=== PATIENT | female | born 1990 | race African-American/Black ===

== ENCOUNTER → 2017-05-29 | Outpatient (CLI) | payer OTHER ==
[~2017-05-29] MED LIST: EXCETAB80 PO; REGL10TA6 PO
[2017-05-29 18:07] LABS: FOLLICLE STIMULATING HORMONE 4.7 mIU/mL; LUTEINIZING HORMONE 3.8 mIU/mL
[2017-05-29 18:21] LABS: FREE T4 0.74 NG/DL (0.76-1.46)
== END ==
LOC: M LRY 13:10 → EDBD 13:10
PROVIDERS: ATTEND Physician Assistant Medical
DX: N92.6 Irregular menstruation, unspecified (principal)

== ENCOUNTER 2017-06-13 20:28 | Emergency (ER) | payer OTHER ==
[~2017-06-13] VITALS: Ht 165.1 cm; Wt 84.5 kg
[2017-06-13] MEDS ORDERED: EXCETAB80 PO (20:46)
[2017-06-13] MEDS ORDERED: METOCLOPRAMIDE INJ 10MG/2ML VIAL (J2765) IV ONE (21:15)
[2017-06-13] MEDS ORDERED: diphenhydrAMINE INJ 50MG/ML VIAL (J1200) IV STA (21:15)
[2017-06-13] MEDS ORDERED: KETOROLAC 30 MG/ML VIAL (J1885) IV ONE (21:15)
[2017-06-13] MEDS ORDERED: NS 1,000 ML IV ONE (21:15)
[2017-06-13 22:02] LABS: BASO # 0.1 10^3/uL (0.0-0.2); BASO % 0.6 % (0.0-1.0); EOS % 0.1 % (0.0-3.0); IMMATURE GRANULOCYTE % 0.3 % (0-0); LYMPH # 2.1 10^3/uL (1.5-6.5); LYMPH % 19.4 % (24.0-44.0); MEAN CORPUSCULAR HEMOGLOBIN 29.9 pg (27.0-33.0); MEAN CORPUSCULAR HGB CONC 31.6 g/dl (32.0-36.5); MEAN CORPUSCULAR VOLUME 94.6 fl (80.0-96.0); MONO # 0.8 10^3/uL (0.0-0.8); MONO % 7.7 % (0.0-5.0); NEUTROPHILS # 7.8 10^3/uL (1.8-7.7); NEUTROPHILS % 71.9 % (36.0-66.0); PLATELET COUNT, AUTOMATED 254 10^3/uL (150-450); RED CELL DISTRIBUTION WIDTH 11.6 % (11.5-14.5); WHITE BLOOD COUNT 10.8 10^3/uL (4.0-10.0)
[2017-06-13 22:37] LABS: CONTROL LINE HCG INT CTR LINE PRESENT
[2017-06-13 22:47] LABS: ALBUMIN 3.7 GM/DL (3.2-5.2); ALBUMIN/GLOBULIN RATIO 0.88 (1.00-1.93); ALKALINE PHOSPHATASE 45 U/L (45-117); ALT/SGPT 31 U/L (12-78); ANION GAP 6 MEQ/L (8-16); AST/SGOT 31 U/L (15-37); BILIRUBIN,DIRECT < 0.1 MG/DL (0.0-0.2); BILIRUBIN,TOTAL 0.3 MG/DL (0.2-1.0); BLOOD UREA NITROGEN 12 MG/DL (7-18); CALCIUM LEVEL 8.5 MG/DL (8.5-10.1); CARBON DIOXIDE LEVEL 28 MEQ/L (21-32); CHLORIDE LEVEL 105 MEQ/L (98-107); CREATININE FOR GFR 0.72 MG/DL (0.55-1.02); GLOMERULAR FILTRATION RATE > 60.0 (>60); GLUCOSE, FASTING 120 MG/DL (70-105); SODIUM LEVEL 139 MEQ/L (136-145); TOTAL PROTEIN 7.9 GM/DL (6.4-8.2)
[2017-06-13] MEDS ORDERED: LORazepam 2 MG/ML VIAL (J2060) IV STA (23:50)
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
[2017-06-13] MEDS ORDERED: REGL10TA6 PO (23:52)
[2017-06-13 23:55] VITALS: BP 129/69
== END 2017-06-14 00:09 | disposition home or self-care (01) ==
LOC: M ED 20:28
DX: G43.909 Migraine, unspecified, not intractable, without status migrainosus (principal)
CPT/HCPCS: 70450; 80048; 80076; 82550; 82553; 84443; 84703; 85025; 93005; 94760; 96374; 96375; 99284; G0463; J1200; J1885; J2060; J2765

== ENCOUNTER → 2018-02-23 | Outpatient (REF) | payer OTHER | LOC: M SFHCLERA 17:33 | DX: R10.30 Lower abdominal pain, unspecified (principal) | CPT/HCPCS: 87086 ==

== ENCOUNTER → 2018-02-24 | Outpatient (CLI) | payer OTHER ==
[2018-02-24 20:00] LABS: BASO # 0.1 10^3/uL (0.0-0.2); BASO % 0.6 % (0.0-1.0); EOS # 0.1 10^3/uL (0.0-0.50); EOS % 1.1 % (0.0-3.0); HEMATOCRIT 38.4 % (36.0-47.0); HEMOGLOBIN 12.3 g/dl (12.0-15.5); IMMATURE GRANULOCYTE % 0.2 % (0-3.0); LYMPH # 2.7 10^3/uL (1.5-6.5); LYMPH % 32.8 % (24.0-44.0); MEAN CORPUSCULAR HEMOGLOBIN 29.6 pg (27.0-33.0); MEAN CORPUSCULAR VOLUME 92.5 fl (80.0-96.0); MONO # 0.9 10^3/uL (0.0-0.8); MONO % 11.1 % (0.0-5.0); NEUTROPHILS # 4.4 10^3/uL (1.8-7.7); NEUTROPHILS % 54.2 % (36.0-66.0); PLATELET COUNT, AUTOMATED 301 10^3/uL (150-450); RED BLOOD COUNT 4.15 10^6/uL (4.00-5.40); RED CELL DISTRIBUTION WIDTH 11.9 % (11.5-14.5); WHITE BLOOD COUNT 8.2 10^3/uL (4.0-10.0)
[2018-02-24 20:53] LABS: ALBUMIN 3.7 GM/DL (3.2-5.2); ALBUMIN/GLOBULIN RATIO 0.88 (1.00-1.93); ALKALINE PHOSPHATASE 52 U/L (45-117); ALT/SGPT 26 U/L (12-78); ANION GAP 11 MEQ/L (8-16); AST/SGOT 15 U/L (7-37); BILIRUBIN,TOTAL 0.2 MG/DL (0.2-1.0); BLOOD UREA NITROGEN 11 MG/DL (7-18); CALCIUM LEVEL 8.7 MG/DL (8.5-10.1); CARBON DIOXIDE LEVEL 25 MEQ/L (21-32); CHLORIDE LEVEL 105 MEQ/L (98-107); CREATININE FOR GFR 0.77 MG/DL (0.55-1.30); FREE T4 0.74 NG/DL (0.76-1.46); GLOMERULAR FILTRATION RATE > 60.0 (>60); GLUCOSE, FASTING 89 MG/DL (70-100); HCG, SERUM QUANTITATIVE 3254 MIU/ML; IRON (FE) 49 UG/DL (50-170); PERCENT SATURATION 19.6 % (13.2-45.0); POTASSIUM SERUM 4.2 MEQ/L (3.5-5.1); SODIUM LEVEL 141 MEQ/L (136-145); TOTAL IRON BINDING CAPACITY 250 UG/DL (250-450); TOTAL PROTEIN 7.9 GM/DL (6.4-8.2)
== END ==
LOC: M WUC 17:20
DX: M54.5 Low back pain (principal)
CPT/HCPCS: 83550

== ENCOUNTER 2018-09-08 17:37 | Emergency (ER) | payer OTHER ==
[2018-09-08] MEDS ORDERED: ISOVUE-370 76% 100ML VIAL (Q9967) As Ordered ONE (17:51)
[2018-09-08] MEDS ORDERED: NS 1,000 ML IV ONE (18:00)
[2018-09-08 18:01] LABS: BASO % 0.4 % (0.0-1.0); EOS # 0.1 10^3/uL (0.0-0.50); EOS % 0.8 % (0.0-3.0); HEMATOCRIT 38.2 % (36.0-47.0); HEMOGLOBIN 12.3 g/dl (12.0-15.5); LYMPH # 2.2 10^3/uL (1.5-6.5); MEAN CORPUSCULAR HEMOGLOBIN 30.3 pg (27.0-33.0); MEAN CORPUSCULAR HGB CONC 32.2 g/dl (32.0-36.5); MEAN CORPUSCULAR VOLUME 94.1 fl (80.0-96.0); MONO % 12.6 % (0.0-5.0); NEUTROPHILS # 4.3 10^3/uL (1.8-7.7); NEUTROPHILS % 56.9 % (36.0-66.0); PLATELET COUNT, AUTOMATED 240 10^3/uL (150-450); RED BLOOD COUNT 4.06 10^6/uL (4.00-5.40); WHITE BLOOD COUNT 7.5 10^3/uL (4.0-10.0)
[2018-09-08 18:19] VITALS: BP 136/80
[2018-09-08 18:28] LABS: ALBUMIN 2.5 GM/DL (3.2-5.2); ALT/SGPT 15 U/L (12-78); AMYLASE 61 U/L (25-115); BILIRUBIN,DIRECT < 0.1 MG/DL (0.0-0.2); BILIRUBIN,TOTAL 0.2 MG/DL (0.2-1.0); BLOOD UREA NITROGEN 6 MG/DL (7-18); CALCIUM LEVEL 8.3 MG/DL (8.5-10.1); CARBON DIOXIDE LEVEL 20 MEQ/L (21-32); CHLORIDE LEVEL 110 MEQ/L (98-107); CPK CREATINE PHOSPHOKINASE 207 U/L (26-192); CREATININE FOR GFR 0.54 MG/DL (0.55-1.30); ETHYL ALCOHOL (ETHANOL) < 0.003 % (0.000-0.010); GLOMERULAR FILTRATION RATE > 60.0 (>60); GLUCOSE, FASTING 80 MG/DL (70-100); INR 0.92; LIPASE 76 U/L (73-393); MB/CK RELATIVE INDEX 1.35 (< OR =4); PARTIAL THROMBOPLASTIN TIME 28.6 SECONDS (25.4-37.6); PROTHROMBIN TIME 12.4 SECONDS (12.1-14.4); SODIUM LEVEL 139 MEQ/L (136-145); TOTAL PROTEIN 6.4 GM/DL (6.4-8.2); TROPONIN I < 0.02 NG/ML (< 0.10)
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
--- NOTE | 2018-09-08 18:44 | REP ---
Chest one-view HISTORY: Trauma Comparison: None The lungs are clear. The heart is normal in size. The pulmonary vasculature is normal in appearance. Impression: No acute disease. Electronically Signed by Guido Portillo MD 09/08/2018 06:35 P
[2018-09-08] MEDS ORDERED: ONDANSETRON 4MG/2ML VIAL (J2405) IV ONE (18:45)
[2018-09-08] MEDS ORDERED: MORPHINE 2 MG/ML 1ML SYRINGE (J2270) IV PRN (18:45)
[2018-09-08 19:21] LABS: AMPHETAMINES LEVEL URINE NEGATIVE (NEGATIVE); BARBITURATES URINE NEGATIVE (NEGATIVE); BENZODIAZEPINES URINE NEGATIVE (NEGATIVE); CANNABINOIDS URINE NEGATIVE (NEGATIVE); COCAINE METABOLITE URINE NEGATIVE (NEGATIVE); METHADONE URINE NEGATIVE (NEGATIVE); OPIATES URINE NEGATIVE (NEGATIVE); PHENCYCLIDINE URINE NEGATIVE (NEGATIVE)
[2018-09-08] MEDS ORDERED: REGL10TA6 PO (19:26)
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
--- NOTE | 2018-09-09 13:24 | ECGEPIP ---
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
== END 2018-09-08 19:28 | disposition admitted as inpatient to this hospital (09) ==
LOC: M ED 17:37
DX: O99.89 Other specified diseases and conditions complicating pregnancy, childbirth and the puerperium (principal); M54.5 Low back pain; V49.59XA Passenger injured in collision with other motor vehicles in traffic accident, initial encounter; Y92.410 Unspecified street and highway as the place of occurrence of the external cause; Z3A.32 32 weeks gestation of pregnancy
CPT/HCPCS: 51702; 70450; 71045; 71260; 72125; 74177; 76815; 76820; 80048; 80076; 80307; 81001; 82150; 82550; 82553; 83605; 83690; 84484; 85025; 85384; 85460; 85610; 85730; 86850; 86900; 86901; 93005; 93041; 94760; 96361; 96374; 96375; 99285; G0480; J2270; J2405; Q9967

== ENCOUNTER 2018-09-08 19:28 | Outpatient (CLI) | payer OTHER ==
[~2018-09-08] VITALS: Ht 167.6 cm; Wt 93.2 kg
[2018-09-08 20:11] VITALS: BP 132/66
[2018-09-08 23:08] VITALS: BP 110/59
[2018-09-09] VITALS (9 sets, daily range): BP systolic 103–127; BP diastolic 58–88
[2018-09-09] MEDS: PERCOCET 5MG/325MG TAB PO PRN ×2 (00:40→08:40)
== END 2018-09-09 11:38 | disposition home or self-care (01) ==
LOC: M LDO 19:28
PROVIDERS: ATTEND Specialist
DX: Z04.1 Encounter for examination and observation following transport accident (principal); Z3A.32 32 weeks gestation of pregnancy
CPT/HCPCS: 59025; G0378; G0463

== ENCOUNTER 2018-09-11 15:38 | Outpatient (CLI) | payer OTHER ==
[~2018-09-11] VITALS: Ht 167.6 cm; Wt 96.6 kg
[2018-09-11 15:57] VITALS: BP 128/79
[2018-09-11] MEDS ORDERED: OXYC1TAB23 PO (16:02)
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
== END 2018-09-11 17:15 | disposition home or self-care (01) ==
LOC: M LDO 15:38
PROVIDERS: ATTEND Advanced Practice Midwife
DX: O99.89 Other specified diseases and conditions complicating pregnancy, childbirth and the puerperium (principal); M54.9 Dorsalgia, unspecified; R10.30 Lower abdominal pain, unspecified; Z3A.00 Weeks of gestation of pregnancy not specified
CPT/HCPCS: 59025; 76815; 76819; 76820; G0378; G0463

== ENCOUNTER 2018-09-13 21:11 | Outpatient (CLI) | payer OTHER ==
[~2018-09-13] VITALS: Ht 167.6 cm; Wt 96.3 kg
[~2018-09-13 21:11] MED LIST changes: +OXYC1TAB23 PO
[2018-09-13 21:28] VITALS: BP 121/75
[2018-09-13] MEDS ORDERED: MAG Sulf (OBGYN) 20GM/500ML 20,000 MG in APPROPRIATE DILUENT 1 EA IV SCH (22:08)
[2018-09-13] MEDS ORDERED: ONDANSETRON 4MG/2ML VIAL (J2405) IV PRN (22:15)
[2018-09-13] MEDS ORDERED: CALCIUM GLUCONATE 1,000 MG in D5W MINI-BAG PLUS 100 ML IV PRN (22:15)
[2018-09-13] MEDS ORDERED: MAG Sulf (L&D) 4 GM/100 ML 4 GM in APPROPRIATE DILUENT 1 EA IV ONE (22:15)
[2018-09-13] MEDS ORDERED: PENICILLIN G POTASSIUM IV 5 MU in D5W MINI-BAG PLUS 100 ML IV ONE (22:15)
[2018-09-13 22:41] LABS: BASO % 0.3 % (0.0-1.0); EOS # 0.1 10^3/uL (0.0-0.50); EOS % 0.5 % (0.0-3.0); HEMATOCRIT 38.8 % (36.0-47.0); HEMOGLOBIN 12.6 g/dl (12.0-15.5); LYMPH # 1.9 10^3/uL (1.5-6.5); LYMPH % 17.5 % (24.0-44.0); MEAN CORPUSCULAR HEMOGLOBIN 30.4 pg (27.0-33.0); MEAN CORPUSCULAR HGB CONC 32.5 g/dl (32.0-36.5); MEAN CORPUSCULAR VOLUME 93.7 fl (80.0-96.0); MONO # 1.2 10^3/uL (0.0-0.8); NEUTROPHILS # 7.6 10^3/uL (1.8-7.7); NEUTROPHILS % 70.4 % (36.0-66.0); PLATELET COUNT, AUTOMATED 192 10^3/uL (150-450); RED BLOOD COUNT 4.14 10^6/uL (4.00-5.40); WHITE BLOOD COUNT 10.8 10^3/uL (4.0-10.0)
[2018-09-13] MEDS: LR 1,000 ML IV SCH (22:54)
[2018-09-13] MEDS: BETAMETHASONE SOLUSPAN 6MG/ML INJ 5ML (J0702) IM SCH (22:57)
[2018-09-13 23:08] VITALS: BP 121/59
[2018-09-14] VITALS (19 sets, daily range): BP systolic 116–145; BP diastolic 64–86
[2018-09-14 02:04] LABS: CHLAMYDIA DNA AMPLIFICATION NEGATIVE (NEGATIVE); GC DNA AMPLIFICATION NEGATIVE (NEGATIVE)
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
[2018-09-14] MEDS: LR 1,000 ML IV SCH (12:05)
[2018-09-14 16:21] LABS: HEMATOCRIT 36.6 % (36.0-47.0); MEAN CORPUSCULAR HEMOGLOBIN 30.5 pg (27.0-33.0); MEAN CORPUSCULAR HGB CONC 32.8 g/dl (32.0-36.5); MEAN CORPUSCULAR VOLUME 93.1 fl (80.0-96.0); PLATELET COUNT, AUTOMATED 219 10^3/uL (150-450); RED BLOOD COUNT 3.93 10^6/uL (4.00-5.40); WHITE BLOOD COUNT 11.7 10^3/uL (4.0-10.0)
[2018-09-14 16:46] LABS: ALT/SGPT 12 U/L (12-78); BILIRUBIN,TOTAL 0.3 MG/DL (0.2-1.0); CREATININE FOR GFR 0.68 MG/DL (0.55-1.30); GLOMERULAR FILTRATION RATE > 60.0 (>60); LDH LACTATE DEHYDROGENASE 232 U/L (84-246)
[2018-09-14 17:35] LABS: TOTAL PROTEIN,RANDOM URINE 33.7 MG/DL (0.0-12.0)
--- NOTE | 2018-09-14 18:45 | IPNPDOC ---
Text Note Date of Service The patient was seen on 09/14/18 at 2300. NOTE Subjective: Patient reports she is no longer feeling contractions. She is worried that after the Magnesium is turned off that her contractions may come back. She reports active movement. She denies vaginal bleeding or leaking of fluid. Objective: VS: see below. FHR: 135, positive accelerations, no decelerations, periods of moderate and minimal variability likely related to magnesium. Contractions: occasional-25 minutes apart. Assessment: IUP 33.3 weeks gestation, contractions Plan: Magnesium to be stopped after 12 hours. Bland catheter can also be removed when Magnesium stopped. Her 2nd dose of Betamethasone is to be given at 2200 tonight. Education done with patient on plan of care.Will continue to monitor contraction pattern after magnesium has been stopped. VS,Tori, I+O VS, Tori, I+O Laboratory Tests 09/13/18 22:31 Red Blood Count 4.14, Mean Corpuscular Volume 93.7, Mean Corpuscular Hemoglobin 30.4, Mean Corpuscular Hemoglobin Concent 32.5, Red Cell Distribution Width 12.5, Neutrophils (%) (Auto) 70.4 H, Lymphocytes (%) (Auto) 17.5 L, Monocytes (%) (Auto) 11.0 H, Eosinophils (%) (Auto) 0.5, Basophils (%) (Auto) 0.3, Neutrophils # (Auto) 7.6, Lymphocytes # (Auto) 1.9, Monocytes # (Auto) 1.2 H, Eosinophils # (Auto) 0.1, Basophils # (Auto) 0.0 09/14/18 16:05 Red Blood Count 3.93 L, Mean Corpuscular Volume 93.1, Mean Corpuscular Hemoglobin 30.5, Mean Corpuscular Hemoglobin Concent 32.8, Red Cell Distribution Width 12.5, Aspartate Amino Transf (AST/SGOT) 16, Alanine Aminotransferase (ALT/SGPT) 12, Lactate Dehydrogenase 232, Total Bilirubin 0.3, Uric Acid 4.0 Vital Signs Date Time Temp Pulse Resp B/P (MAP) Pulse Ox O2 Delivery O2 Flow Rate FiO2 09/14/18 15:55 90 18 140/79 (99) 09/14/18 13:06 98.8 I&O- Last 24 Hours up to 6 AM 09/14/18 06:00 Intake Total 210 ml Output Total 850 ml Balance -640 ml VU PEPE CNM Sep 14, 2018 18:45
[2018-09-14] MEDS: BETAMETHASONE SOLUSPAN 6MG/ML INJ 5ML (J0702) IM SCH (22:47)
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
== END 2018-09-14 22:59 | disposition home or self-care (01) ==
LOC: M LDO 21:11 → UNDOADMOB 22:22 → M LDI 22:22 → UNDODISOB 09-14 22:59 → M LDO 09-14 22:59
PROVIDERS: ATTEND Obstetrics & Gynecology
DX: O47.9 False labor, unspecified (principal); Z3A.33 33 weeks gestation of pregnancy
CPT/HCPCS: 36415; 59025; 76815; 76819; 76820; 82247; 82565; 82570; 82731; 83615; 84156; 84450; 84460; 84550; 85025; 85027; 85384; 85460; 86780; 86850; 86900; 86901; 87081; 87086; 87340; 87491; 87591; 96365; 96366; 96368; 96372; G0463; J0702; J3475

== ENCOUNTER 2018-09-16 09:44 | Inpatient (IN) | payer OTHER ==
[~2018-09-16] VITALS: Ht 167.6 cm; Wt 98.1 kg
[2018-09-16 10:09] VITALS: BP 131/67
[2018-09-16] MEDS ORDERED: CYCL10TA PO (10:15)
[2018-09-16] MEDS ORDERED: LACTATED RINGER'S 1000 ML IV ONE (10:45)
[2018-09-16 10:55] LABS: APPEARANCE, URINE CLEAR (CLEAR); BACTERIA, URINE AUTO NEGATIVE (NEGATIVE); BILIRUBIN, URINE AUTO NEGATIVE (NEGATIVE); BLOOD, URINE BLOOD NEGATIVE (NEGATIVE); COLOR, URINE YELLOW (YELLOW); GLUCOSE, URINE (UA) AUTO NEGATIVE (NEGATIVE); KETONE, URINE AUTO NEGATIVE (NEGATIVE); LEUKOCYTE ESTERASE, URINE AUTO NEGATIVE (NEGATIVE); NITRITE, URINE AUTO NEGATIVE (NEGATIVE); PROTEIN, URINE AUTO NEGATIVE (NEGATIVE); RBC, URINE AUTO 0 /HPF (0-3); SPECIFIC GRAVITY URINE AUTO 1.006 (1.002-1.035); SQUAMOUS EPITHELIAL CELL UR AU 0 /HPF (0-6); UROBILINOGEN, URINE AUTO 0.2 mg/dL (0.0-2.0); WBC, URINE AUTO 2 /HPF (0-3)
[2018-09-16 11:10] LABS: AMPHETAMINES URINE REFLEX NEGATIVE (NEGATIVE); BARBITURATES URINE REFLEX NEGATIVE (NEGATIVE); BENZODIAZEPINES URINE REFLEX NEGATIVE (NEGATIVE); CANNABINOIDS URINE REFLEX NEGATIVE (NEGATIVE); COCAINE METABOLITE URINE REFLE NEGATIVE (NEGATIVE); METHADONE URINE REFLEX NEGATIVE (NEGATIVE); OPIATES URINE REFLEX NEGATIVE (NEGATIVE); PHENCYCLIDINE URINE REFLEX NEGATIVE (NEGATIVE)
[2018-09-16 12:52] VITALS: BP 118/71
--- NOTE | 2018-09-16 13:38 | REP ---
Emergency limited obstetric sonography: History: Supervision of for assessment of Biophysical profile. Findings: Transabdominal scanning demonstrates a viable single intrauterine gestation in a cephalic lie. Placenta is anterior grade 2 without evidence of previa. heart rate is recorder 153 beats per minute. Amniotic fluid is subjectively normal. BROOKE is normal and 9.1 cm. Biophysical profile score is eight out of a possible eight. SD ratio in the umbilical cord artery by Doppler is normal at 2.00. Electronically Signed by Angel Carrera MD 09/16/2018 01:29 P
[2018-09-16 15:04] LABS: HEPATITIS C VIRUS ABY INDEX 0.1 INDEX (<0.8); HIV 1&2 SCREEN CENTAUR NEGATIVE (NEGATIVE)
[2018-09-16 15:31] VITALS: BP 116/63
[2018-09-16 15:35] LABS: HEMATOCRIT 37.8 % (36.0-47.0); HEMOGLOBIN 12.3 g/dl (12.0-15.5); MEAN CORPUSCULAR HGB CONC 32.5 g/dl (32.0-36.5); MEAN CORPUSCULAR VOLUME 92.2 fl (80.0-96.0); PLATELET COUNT, AUTOMATED 229 10^3/uL (150-450); WHITE BLOOD COUNT 11.8 10^3/uL (4.0-10.0)
[2018-09-16 15:50] LABS: INR 0.96; PROTHROMBIN TIME 12.9 SECONDS (12.1-14.4)
[2018-09-16 15:51] LABS: PARTIAL THROMBOPLASTIN TIME 26.1 SECONDS (25.4-37.6)
[2018-09-16] MEDS ORDERED: LR 1,000 ML IV SCH ×2 (17:24→20:36)
[2018-09-16 17:45] VITALS: BP 142/83
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
[2018-09-16] MEDS ORDERED: OXYTOCIN 30 UNITS IN 0.9% NaCl 500ML IV BAG (J2590) As Ordered ONE (20:41)
[2018-09-16] MEDS ORDERED: OXYTOCIN DRIP 30 UNITS in APPROPRIATE DILUENT 1 EA IV SCH (20:45)
[2018-09-16] MEDS ORDERED: FENTANYL 2MCG/ML ROPIVACAINE 0.2% IN 0.9% NACL 100ML IVBAG As Ordered ONE (21:50)
[2018-09-16] MEDS ORDERED: EPIDURAL/PCA KEYS XX PRN (23:00)
[2018-09-16] MEDS ORDERED: FENTANYL/ROPIVACAINE/NACL BAG 100 ML EPIDURAL SCH (23:00)
[2018-09-16] MEDS ORDERED: NALOXONE INJ 0.4 MG/1 ML VIAL (J2310) IV PRN (23:00)
[2018-09-16] MEDS ORDERED: ONDANSETRON 4MG/2ML VIAL (J2405) IV PRN (23:00)
[2018-09-16] MEDS ORDERED: diphenhydrAMINE INJ 50MG/ML VIAL (J1200) IV PRN (23:00)
[2018-09-16] MEDS ORDERED: REFRIGERATOR IV KEYS XX PRN (23:00)
[2018-09-16] MEDS ORDERED: LACTATED RINGER'S 1000 ML IV PRN (23:00)
[2018-09-16] MEDS ORDERED: ePHEDrine SULFATE 25 MG/5 ML(5MG/ML) SYRINGE IV PRN (23:00)
[2018-09-16] MEDS ORDERED: EPIDURAL COMMENT XX SCH (23:00)
[2018-09-17] MEDS ORDERED: OXYTOCIN DRIP 30 UNITS in APPROPRIATE DILUENT 1 EA IV SCH (00:37)
[2018-09-17] MEDS ORDERED: DOCUSATE SODIUM 100 MG CAP PO PRN (00:45)
[2018-09-17] MEDS ORDERED: DIBUCAINE 1% OINTMENT 30GM TOP PRN (00:45)
[2018-09-17] MEDS ORDERED: MEASLES,MUMPS,RUBELLA VACCINE INJ (MMR-II) (90707) SC SCH (00:45)
[2018-09-17] MEDS ORDERED: METHYLERGONOVINE MALEATE 0.2 MG TAB PO PRN (00:45)
[2018-09-17] MEDS ORDERED: RHOGAM 300 MCG (1500 IU) INJ (J2790) IM SCH (00:45)
[2018-09-17 02:58] VITALS: BP 110/55
--- NOTE | 2018-09-17 06:36 | DN ---
DATE OF DELIVERY: 09/16/2018 Shira is a 28-year-old 3, para 0-2-1-2 now who was admitted to labor and delivery for premature rupture of membranes. She was betamethasone complete more than 48 houurs ago, IV Pitocin was started and labor did ensue. She reached full dilation at 0002. She pushed to a normal spontaneous vaginal delivery of a live female in occiput anterior (OA) position with restitution to right occiput transverse (ROT) position at 0009. There was no nuchal cord. The shoulders delivered spontaneously and the corpus immediately followed. The was placed on maternal abdomen. She was crying and active. The cord was clamped times two and cut by the father of the baby. The was taken immediately to the warmer for evaluation and resuscitation and then transferred to the intensive care unit. There was a manual removal of an intact placenta with three-vessel cord by Morse mechanism at 0021. Uterine hemostasis achieved with IV Pitocin rapid infusion and uterine fundal massage. Estimated blood loss 300 mL. Perineum and vagina inspected noted to be intact. The female weighed 4 pounds 8 ounces, 2036 grams, 9 and 9. Family have named their daughter Corinne. Mom is going for both breast and bottle feed at the close of delivery. Instrument counts and lap counts were correct and verified. [facility]
[2018-09-17 06:48] VITALS: BP 124/70
[2018-09-17] MEDS: PRENATAL VITAMINS CHEWABLE TABLET PO SCH (07:59)
[2018-09-17] MEDS: IBUPROFEN 800 MG TAB PO PRN ×2 (07:59→15:57)
[2018-09-17] MEDS: ACETAMINOPHEN 500 MG TAB PO PRN ×2 (12:41→17:50)
[2018-09-17] MEDS ORDERED: CYCLOBENZAPRINE 10 MG TAB PO PRN (23:15)
[2018-09-18 06:00] VITALS: BP 135/71
--- NOTE | 2018-09-18 07:45 | NUR ---
PPD#1 S: Doing well w/o complaints. Decreasing lochia, pain controlled, + voids and ambulation. O: vss, AF Gen: well appearing abd: soft, nttp with ff@[id number] ext: neg calf tenderness A/P: PPD#1 s/p vaginal delivery -currently stable -continue routine care -d/c plans for tomorrow Sloane Lovelace MD
[2018-09-18] MEDS: PRENATAL VITAMINS CHEWABLE TABLET PO SCH (09:00)
[2018-09-18] MEDS: IBUPROFEN 800 MG TAB PO PRN ×2 (10:34→17:41)
[2018-09-18 18:00] VITALS: BP 136/86
[2018-09-18] MEDS: ACETAMINOPHEN 500 MG TAB PO PRN (18:55)
[2018-09-19 06:14] VITALS: BP 132/73
[2018-09-19] MEDS: PRENATAL VITAMINS CHEWABLE TABLET PO SCH (09:27)
[2018-09-19] MEDS ORDERED: MAPA500T2 PO (09:55)
[2018-09-19] MEDS ORDERED: IBUP-1114 PO (09:56)
== END 2018-09-19 12:35 | disposition home or self-care (01) | DRG 560 ==
LOC: M LDO 09:44 → M LDI 17:20 → M OBS 09-17 02:35
PROVIDERS: ADMIT Advanced Practice Midwife; ATTEND Advanced Practice Midwife
PROC: 10E0XZZ Delivery of Products of Conception, External Approach (ICD-10-PCS; principal; 2018-09-16)
DX: O42.013 Preterm premature rupture of membranes, onset of labor within 24 hours of rupture, third trimester (principal); O36.8130 Decreased fetal movements, third trimester, not applicable or unspecified; Z3A.34 34 weeks gestation of pregnancy; Z37.0 Single live birth